=== PATIENT | female | born 1950 | race Caucasian/White ===

== ENCOUNTER → 2024-03-11 12:27 | Outpatient (REF) | payer MEDICARE, SELFPAY | LOC: WDC 12:27 | PROVIDERS: ATTENDING PHYSICIAN Obstetrics & Gynecology | DX: Z12.31 Encounter for screening mammogram for malignant neoplasm of breast (principal) | CPT/HCPCS: 77063; 77067 ==

== ENCOUNTER → 2025-03-12 16:59 | Outpatient (REF) | payer MEDICARE, SELFPAY | LOC: WDC 16:59 | PROVIDERS: ATTENDING PHYSICIAN Obstetrics & Gynecology; FAMILY PHYSICIAN Internal Medicine | DX: Z12.31 Encounter for screening mammogram for malignant neoplasm of breast (principal) | CPT/HCPCS: 77063; 77067 ==